=== PATIENT | male | born 1955 | race Caucasian/White ===

== ENCOUNTER 2016-12-31 21:16 | Inpatient (IN) | payer OTHER ==
--- NOTE | ~2016-12-31 | PN ---
Unit #: [id number] #: [id number] Patient: RAQUEL BLANCO [id number] [facility] [address] [place] [address] [id number] MR#: [id number] NAME: RAQUEL BLANCO ROOM: [facility] Age: 61 Sex: M Admission Date: 12/31/2016 : 1955 Attending Physician: Alber Donnelly M.D. Admitting Physician: Alber Donnelly M.D. Primary Care Physician: Generic Doctor Not In System [facility] PROGRESS NOTES DATE OF SERVICE: 01/02/2017 DISCUSSION Mr. Raquel Blanco is a 61-year-old male, seen on 01/02/2017. The patient continues to be guarded, paranoid; reported hearing voices, trouble sleeping, anxiety, and mood lability. Complete review of systems, unremarkable. MENTAL STATUS EXAMINATION General appearance, the patient dressed casually in hospital attire. Attention span and concentration, poor. Orientation in place and person. Mood and affect, labile. Speech, rapid and loud. Thought process, circumstantial, guarded. The patient reported suicidal ideation, hallucination, visual hallucination, seeing demons. Recent and remote memory, poor. Insight and judgment, poor. DIAGNOSIS Schizophrenia, chronic, paranoid type. ASSESSMENT AND PLAN Advised to add Thorazine 100 mg at bedtime, doxepin 100 mg at bedtime. The patient to continue with Zoloft and Zyprexa combination. If needed, consider further adjustment of medication. Dictated by... Kushal Ruiz/jamey TD: 01/02/2017 20:20 JOB #: [id number] Unit #: [id number] #: [id number] Patient: RAQUEL BLANCO PROGRESS NOTES Page 1 of 1 X Alber Donnelly MD PROGRESS NOTE
--- NOTE | ~2016-12-31 | PN ---
Unit #: [id number] #: [id number] Patient: RAQUEL BLANCO [id number] [facility] [address] [place] [address] [id number] MR#: [id number] NAME: RAQUEL BLANCO ROOM: [facility]121 Age: 61 Sex: M Admission Date: 12/31/2016 : 1955 Attending Physician: Alber Donnelly M.D. Admitting Physician: Alber Donnelly M.D. Primary Care Physician: Generic Doctor Not In System [facility] PROGRESS NOTES DATE 01/01/2017 DISCUSSION Raquel Blanco is a 61-year-old male. Patient continues to look sad, dysphoric, flat, hallucinations, suicidal ideation. Complete review of systems unremarkable. MENTAL STATUS EXAMINATION General appearance: Patient is dressed casually. Attention span and concentration fair. Oriented in place and person. Mood and affect sad and dysphoric. Speech monotone. Thought process disorganized and guarded, paranoid, having suicide ideation. Recent and remote memory poor. Insight and judgement poor. DIAGNOSIS Schizophrenia, chronic paranoid type. Mood disorder NOS. ASSESSMENT AND PLAN Advise to continue with current medication and therapeutic protocol. If needed, consider further adjustment of medication. Dictated by... Kushal Ruiz TD: 01/02/2017 10:10 JOB #: [id number] [facility] PROGRESS NOTES Page 1 of 1 X Alber Donnelly MD X PROGRESS NOTE
--- NOTE | ~2016-12-31 | PN ---
Unit #: [id number] #: [id number] Patient: RAQUEL BLANCO [id number] [facility] [address] [place] [address] [id number] MR#: [id number] NAME: RAQUEL BLANCO ROOM: [facility] Age: Sex: M Admission Date: 12/31/2016 : 1955 Attending Physician: Alber Donnelly M.D. Admitting Physician: Alber Donnelly M.D. Primary Care Physician: Generic Doctor Not In System [facility] DATE OF SERVICE: 01/03/2017 DISCUSSION Mr. Raquel Blanco is a 61-year-old male, seen on 01/03/2017. The patient was admitted with hallucinations, psychosis, suicidal ideation, and command hallucination, the patient was still reporting yesterday and this morning. Mood was labile, angry, and demanded discharge. Subsequently, the patient was placed on a 72-hour hold as unable to ensure safety at this time as the patient is still having significant symptoms of psychosis, mood instability, and command hallucination. REVIEW OF SYSTEMS Complete review of systems unremarkable. MENTAL STATUS EXAMINATION General appearance, the patient dressed casually. Attention span and concentration, poor. Oriented in place and person. Mood and affect, labile. Speech, rapid. Thought process, circumstantial. Association; guarded, paranoid, and delusional. Denied any thoughts of harming self or others. Recent and remote memory, poor. Insight and judgment, poor, but still having command hallucination. DIAGNOSIS Schizophrenia, chronic paranoid type. ASSESSMENT AND PLAN Advised to continue with current medication and therapeutic protocol. If needed, consider further adjustment of medication. The patient is currently on Thorazine, doxepin, and Zyprexa combination. Dictated by... Alber Donnelly M.D. SZC/mickeyl TD: 01/03/2017 15:22 JOB #: [id number] Unit #: [id number] #: [id number] Patient: RAQUEL BLANCO [facility] NOTES Page 1 of 1 X Alber Donnelly MD X PROGRESS NOTE
--- NOTE | ~2016-12-31 | DS ---
Unit #: [id number] #: [id number] Patient: RAQUEL BLANCO [id number] [facility] [address] [place] [address] [id number] MR#: [id number] NAME: RAQUEL BLANCO ROOM: [facility] Age: 61 Sex: M Admission Date: 12/31/2016 : 1955 Discharge Date: 01/04/2017 Attending Physician: Alber Donnelly M.D. Primary Care Physician: Generic Doctor Not In System DISCHARGE SUMMARY REASON FOR ADMISSION Depression. DIAGNOSTIC STUDIES LABORATORY RESULTS: Unremarkable except WBC 14.9. HOSPITAL COURSE The patient was admitted to inpatient unit on 12/31/2016 and discharged on 01/04/2017. The patient was treated on the inpatient unit with group therapy, individual therapy, and medication management. The patient requested for discharge. Subsequently, the patient was discharged as the patient denied any suicidal or homicidal ideation, but still somewhat guarded. DISCHARGE MEDICATIONS Zyprexa 10 mg at bedtime for depression and psychosis, Zoloft 200 mg daily for mood symptom, and doxepin 100 mg at bedtime for sleep. DISCHARGE DIAGNOSES Psychiatric: Psychosis, not otherwise specified, F29.0 and schizophrenia, chronic paranoid type, F20.0. Secondary diagnosis: Deferred. Medical diagnosis: History of hepatitis C. Stressors: Psychosocial stressor. DISCHARGE INSTRUCTIONS The patient to follow up in outpatient clinic as per hospital social worker. CONDITION ON DISCHARGE The patient was pleasant and cooperative. Denied any psychotic symptom or any suicidal ideation. PROGNOSIS Guarded. DIET AND ACTIVITY As tolerated. Dictated by... Unit #: [id number] #: [id number] Patient: RAQUEL BLANCO Kushal Ruiz/jamey TD: 01/04/2017 19:02 JOB #: [id number] DISCHARGE SUMMARY Page 1 of 1 X Alber Donnelly MD X DISCHARGE SUMMARY
--- NOTE | ~2016-12-31 | PA ---
Unit #: [id number] #: [id number] Patient: RAQUEL BLANCO [id number] [facility] [address] [place] [address] [id number] I MR#: [id number] NAME: RAQUEL BLANCO ROOM: [facility] Age: 61 Sex: M Admission Date: 12/31/2016 : 1955 Date of Assessment: Attending Physician: Alber Donnelly M.D. Admitting Physician: Alber Donnelly M.D. Primary Care Physician: Generic Doctor Not In System PSYCHIATRIC ASSESSMENT INFORMANTS The patient's reliability, fair; chart reliability, good. CHIEF COMPLAINT Auditory hallucination. HISTORY OF PRESENT ILLNESS Mr. Reyes is a 61-year-old male, presented with the above-mentioned complaint, having hallucination command hallucination, thoughts of harming self. The patient presented with psychotic symptom, command hallucination, voices telling him to kill himself. The patient reported hearing voices all the time, usually singing lullaby. The patient reports government conspiracy to make him kill himself, keep him in poverty. The patient reported he does not have current homicidal ideation. The patient feeling anxious, nervous, sad and depressed. Needing inpatient admission at this time for psychiatric stabilization. PAST PSYCHIATRIC HISTORY Unavailable at this time. No known history of any previous treatment except treatment at [facility]. FAMILY HISTORY AND SOCIAL HISTORY The patient has a poor support system. No known history of any abuse. MEDICAL HISTORY Remarkable for history of hepatitis C. Musculoskeletal; muscle strength and tone, no atrophy or abnormal movement. Gait normal. MEDICATION HISTORY None. ALLERGIES No known drug allergies. SUBSTANCE ABUSE HISTORY None except alcohol and cocaine use in 2002. REVIEW OF SYSTEMS HEENT: Eyes, clear. Ears, nose, mouth, and throat; clear. CARDIOVASCULAR: Unremarkable. RESPIRATORY: Unremarkable. GI: Unremarkable. : Unremarkable. Unit #: [id number] #: [id number] Patient: RAQUEL BLANCO SKIN: Unremarkable. LYMPH NODE: Unremarkable. NEUROLOGIC: Unremarkable. ENDOCRINE: Unremarkable. HEMATOLOGIC: Unremarkable. ALLERGIC/IMMUNOLOGIC: Unremarkable. MUSCULOSKELETAL: Muscle strength and tone, no atrophy or abnormal movement. Gait normal. MENTAL STATUS EXAMINATION CONSTITUTIONAL: Measurement of vital signs; temperature 98.6, pulse 73, respirations 20, blood pressure 129/87. Height 6 feet and weight 225 pounds. GENERAL APPEARANCE: The patient dressed casually. The patient did not show any facial deformity. MUSCULOSKELETAL: Muscle strength and tone, no atrophy or abnormal movement. Gait normal. PSYCHIATRIC EXAMINATION Description of speech, regular rate. Description of thought process, circumstantial. Description of association; guarded, paranoid, having command hallucination. No suicidal ideation. Description of the patient's judgment; concerning everyday activity, poor. Social situation, poor. Concerning psychiatric condition, poor. Complete mental status examination; oriented in time, place, and person. Recent and remote memory, fair. Attention span and concentration, fair. Language, able to name object and repeat phrases. Fund of knowledge, aware of current event and passive vocabulary intact. Mood and affect, sad and dysphoric. Insight and judgment, fair to poor. ASSETS AND LIABILITIES Assets; the patient is articulate and able to take care of his ADL. Liability, history of depression and psychosis. ADMITTING DIAGNOSES Psychiatric: 1. Psychosis, not otherwise specified, F29.0. 2. Schizophrenia, chronic paranoid type, F20.0. Secondary diagnosis: Deferred. Medical diagnosis: History of hepatitis C. Stressors: Psychosocial stressors. PSYCHIATRIC PLAN AND TREATMENT GOAL 1. Advised to admit the patient on the inpatient unit. Provide safe, supportive, and structured environment. 2. Ordered labs; CBC, CMP, UA, and UDS. 3. Precaution for psychosis, self-harm. 4. The patient to attend all the programing on the inpatient unit, group therapy, individual therapy, medication management. The patient is currently on a combination of Zoloft 200 mg at bedtime and Zyprexa 10 mg at bedtime. Advised to continue. If needed, consider further adjustment of medication. Treatment goal to attain euthymic mood, gain insight into his problem, and learn coping skills. DISCHARGE PLAN Unit #: [id number] #: [id number] Patient: RAQUEL BLANCO Plan to stabilize the patient and consider followup in outpatient program. ESTIMATED LENGTH OF STAY 5 to 7 days. Dictated by... Alber Donnelly M.D. LILLIE/jamey TD: 01/02/2017 00:45 JOB #: [id number] PSYCHIATRIC ASSESSMENT Page 1 of 1 X Alber Donnelly MD PSYCHIATRIC ASSESSMENT
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
[2017-01-01 15:03] LABS: BASOPHIL# 0.2 X10e3 (0-0.3); BASOPHIL% 1.3 % (0-2.5); EOSINOPHIL# 0.8 X10e3 (0-0.7); EOSINOPHIL% 5.2 % (0.0-7.0); HEMATOCRIT 47.3 % (38.0-50.0); HEMOGLOBIN 15.8 gm/dL (13.0-16.0); LYMPHOCYTE# 4.1 X10e3 (1.0-3.5); LYMPHOCYTE% 27.6 % (17.0-45.0); MEAN CELL VOLUME 98.4 FL (83-96); MEAN CORPUSCULAR HGB CONC 33.5 g/dL (30-36); MEAN PLATELET VOLUME 9.7 FL (6.5-11.5); MONOCYTE# 1.3 X10e3 (0-1.0); MONOCYTE% 8.5 % (3.0-12.0); NEUTROPHIL# 8.5 X10e3 (1.5-7.1); NEUTROPHIL% 57.4 % (40-75); PLATELET COUNT 256 X10e3 (140-420); RED BLOOD COUNT 4.81 X10e (3.90-5.60); RED CELL DISTRIBUTION WIDTH 14.2 % (11.0-15.5); WHITE BLOOD COUNT 14.9 X10e3 (4.0-10.5)
[2017-01-01 15:04] LABS: DIFF IND YES
[2017-01-01 15:09] LABS: ALBUMIN SERUM 4.1 g/dL (3.5-5.0); BILIRUBIN,TOTAL 0.7 mg/dL (0.2-2.0); BUN/CREATININE RATIO 12.5; CALCIUM SERUM 9.3 mg/dL (8.4-10.2); CREATININE SERUM 0.8 mg/dL (0.6-1.4); GLOM FILT RATE Estimated 97.8 mL/min (>60); POTASSIUM 4.4 mmol/L (3.5-5.1); PROTEIN TOTAL SERUM 7.1 g/dL (6.0-8.3)
[2017-01-01 15:45] LABS: ANISOCYTOSIS SL; PLATELET ESTIMATE NORMAL (NORMAL)
[2017-01-04 12:55] LABS: URINE APPEARANCE CLEAR; URINE BILIRUBIN NEG (NEG); URINE BLOOD NEG (NEG); URINE COLOR YELLOW; URINE GLUCOSE NEG (NEG); URINE KETONE NEG (NEG); URINE LEUKOCYTE ESTERASE NEG (NEG); URINE NITRATE NEG (NEG); URINE PH 5.5 (5-8); URINE PROTEIN NEG (NEG); URINE UROBILINOGEN 0.2 MG/DL (NEG)
[2017-01-04 13:07] LABS: AMPHETAMINE NEG (NEG); BARBITURATES NEG (NEG); BENZODIAZEPINES NEG (NEG); COCAINE NEG (NEG); MARIJUANA POS (NEG); OPIATES NEG (NEG); TRICYCLIC ANTIDEPRESSANTS POS (NEG); U METHADONE NEG (NEG)
== END 2017-01-04 11:30 | disposition home or self-care (01) | DRG 885 ==
LOC: P1S 21:16
PROVIDERS: Psychiatry & Neurology Psychiatry
DX: F20.0 Paranoid schizophrenia (principal); R45.851 Suicidal ideations; F39 Unspecified mood [affective] disorder; F29 Unspecified psychosis not due to a substance or known physiological condition; Z86.19 Personal history of other infectious and parasitic diseases; H54.41 Blindness, right eye, normal vision left eye; Z90.81 Acquired absence of spleen; F17.210 Nicotine dependence, cigarettes, uncomplicated
CPT/HCPCS: 80053; 80307; 81003; 85025